=== PATIENT | female | born 1945 | race Hispanic/Latino ===

== ENCOUNTER 2017-12-30 10:31 | Observation (INO) | payer MEDICARE, OTHER ==
[2017-12-29 11:28] LABS: ANION GAP 13.4 mmol/L (8-16); CALCIUM 9.9 mg/dL (8.4-10.2); CREATININE, SERUM 1.02 mg/dL (0.57-1.11); POTASSIUM 4.4 mmol/L (3.5-5.1)
[~2017-12-30] VITALS: Ht 157.5 cm; Wt 82.6 kg
[~2017-12-30 10:31] MED LIST: ACTONEL150 MG PO; ALBUTEROL0.63 MG/3 NEB; ASPIR 8181 MG PO; ATORVASTATIN CA20 MG PO; BREO INH; GLIMEPIRIDE1 MG PO; JANUMET 50-5001 EACH PO; LEVOCETIRIZINE D5 MG PO; LISINOPRIL2.5 MG PO; OMEPRAZOLE40 MG PO; RESTASIS1 EACH OP; SYMBICORT 80-10.2 GM INH; ULTRAM 50MG50 MG PO; ZOFRAN ODT8 MG PO
--- OUTSIDE RECORDS SUMMARY | 2017-12-30 10:34 | XMS REPORT ---
Author Author [facility] Address Unknown Phone Unavailable Care Team Providers Care Material Man Name Role Phone GLENROY PARIKH Unavailable Unavailable Problems This patient has no known problems. Allergies, Adverse Reactions, Alerts This patient has no known allergies or adverse reactions. Medications This patient has no known medications. Results Test Description Test Time Test Comments Text Results Atomic Results Result Comments MRI RIGHT KNEE WO [place] [address] Patient Name: ANGELICA SAENZ MR #: [id number] : 1945 Age/Sex: 72/F Req # : [id number] [facility] Physician: Ordered by: GLENROY PARIKH MD Report #: [id number] Location: MRI Room/Bed: Procedure: [id number] MRI/MRI RIGHT KNEE WO Exam Date: 06/06/17 Exam Time: 1422 REPORT STATUS: Signed TECHNIQUE: Magnetic resonance imaging of the RIGHT KNEE was performed WITHOUT injected contrast. HISTORY: Pain, tear of medial meniscus COMPARISON: None available. FINDINGS: LIGAMENTS AND TENDONS: ACL: Intact fibers with intrasubstance degeneration. PCL: Intact Collateral ligaments: Intact Iliotibial band: Unremarkable Popliteal tendon: Intact Extensor mechanism: Intact JOINT: Menisci: Medial: Diffuse severe attenuation and mild contour irregularity. Lateral: Intact Articular Cartilage: Medial Compartment : Full-thickness erosion of the weightbearing cartilage. Lateral Compartment : Intermediate to high-grade erosion of the weightbearing cartilage. Patellofemoral Compartment: Diffuse low-grade erosion. Joint Fluid: Small effusion with synovitis and a nondistended Francis's cyst. BONES: No focal or infiltrative bone marrow replacing abnormality. No acute fracture. Medial compartment predominant marginal osteophytosis and subchondral sclerosis. SOFT TISSUES: Otherwise, unremarkable. IMPRESSION: Medial compartment predominant tricompartmental osteoarthrosis and degenerative tearing versus prior partial meniscectomy with superimposed degenerative changes of the medial meniscus. Please correlate with a more specific history regarding the potential history of a prior surgery. Signed by: Dr. Wili Sheets M.D. on 06/06/2017 3:10 PM Dictated By: WILI SHEETS DO 1510 Transcribed By: IRENE on 06/06/17 1510 COPY TO: GLENROY PARIKH MD
[2017-12-30] MEDS ORDERED: CEFAZOLIN SOD 2 GM/D5W 50ML 50 ML IV ONE (11:04)
[2017-12-30] MEDS ORDERED: BUPIVACAINE 0.5%/EPI 30 ML SDV INJ ONE (13:04)
[2017-12-30] MEDS ORDERED: DIPHENHYDRAMINE HCL INJ 50 MG/ML VIAL IM/IV PRN (15:15)
[2017-12-30] MEDS ORDERED: ACETAMINOPHEN 1000 MG/100 ML IV PRN (15:15)
[2017-12-30] MEDS ORDERED: NALOXONE HCL INJ 0.4 MG/ML AMP IV PRN (15:15)
[2017-12-30] MEDS ORDERED: HYDROMORPHONE 0.2MG/ML-SOD CHL 30ML PCA SYRINGE IV PRN (15:15)
[2017-12-30] MEDS ORDERED: ONDANSETRON HCL INJ 2 MG/ML VIAL IV PRN (15:15)
[2017-12-30] MEDS ORDERED: HYDROMORPHONE 0.2MG/ML-SOD CHL 30ML PCA SYRINGE IV ONE (17:08)
[2017-12-30] MEDS ORDERED: LIDOCAINE HCL 2% LOCAL INJ 5 ML SDV VIAL INJ ONE (17:26)
[2017-12-30] MEDS ORDERED: ONDANSETRON HCL INJ 2 MG/ML VIAL ONE (17:26)
[2017-12-30] MEDS ORDERED: EPHEDRINE SULFATE INJ 50 MG/10 ML SYR ONE (17:26)
[2017-12-30] MEDS ORDERED: ROCURONIUM BROMIDE 10 MG/ML 5ML VIAL ONE (17:26)
[2017-12-30] MEDS ORDERED: DEXAMETHASONE SOD PHOS INJ 4 MG/ML VIAL ONE (17:26)
[2017-12-30] MEDS ORDERED: PROPOFOL IV EMULSION 10 MG/ML 20 ML VIAL ONE (17:26)
[2017-12-30] MEDS ORDERED: NEOSTIGMINE 5 MG/5ML SYR ONE (17:26)
[2017-12-30] MEDS ORDERED: GLYCOPYRROLATE INJ 1MG/ 5 ML SYR ONE (17:26)
[2017-12-30] MEDS ORDERED: SEVOFLURANE INHAL SOLN 250 ML PEN BTL ONE (17:26)
[2017-12-30] MEDS ORDERED: BUPIVACAINE HCL 0.5% INJ 30 ML VIAL INJ ONE (17:30)
[2017-12-30] MEDS ORDERED: EPINEPHRINE HCL INJ 1 MG/ML AMP ONE (17:30)
[2017-12-30 17:38] VITALS: BP 116/59
[2017-12-30 17:53] VITALS: BP 116/59
[2017-12-30] MEDS: SODIUM CHLORIDE 0.9% 1000ML 1,000 ML IV SCH (18:00)
[2017-12-30 18:25] VITALS: BP 116/59
[2017-12-30] MEDS ORDERED: FENTANYL CITRATE/PF 100MCG/2 ML INJ ONE (18:29)
[2017-12-30] MEDS ORDERED: MIDAZOLAM HCL 2 MG/2 ML VIAL ONE (18:29)
[2017-12-30 20:00] VITALS: BP 116/59
[2017-12-30] MEDS: CEFAZOLIN SOD 1 GM VIAL IV SCH (20:28)
[2017-12-30] MEDS ORDERED: CEFAZOLIN SOD 1 GM/D5W 50ML 50 ML IV SCH (22:00)
[2017-12-31] VITALS: BP 106/58
[2017-12-31] MEDS: SODIUM CHLORIDE 0.9% 1000ML 1,000 ML IV SCH ×2 (01:12→09:23)
[2017-12-31 04:00] VITALS: BP 88/55
[2017-12-31] MEDS: CEFAZOLIN SOD 1 GM VIAL IV SCH ×2 (05:50→12:03)
[2017-12-31 06:35] LABS: HEMATOCRIT 29.7 % (34.2-44.1); HEMOGLOBIN 9.2 g/dL (12.0-16.0)
[2017-12-31 08:00] VITALS: BP 96/55
--- NOTE | 2017-12-31 08:39 | Operative Report ---
DATE OF PROCEDURE: December 30, 2017 PREOPERATIVE DIAGNOSIS: Right proximal humerus fracture. POSTOPERATIVE DIAGNOSIS: Right proximal humerus fracture. OPERATIONS/PROCEDURES PERFORMED 1. The patient underwent an open reduction internal fixation of right proximal humerus fracture. 2. Allograft bone grafting of the right proximal humerus fracture. PRIVATE BRANCH EXCHANGE INSTALLER: None. ANESTHESIA: General endotracheal intubation anesthesia, as well as a regional block. IV FLUIDS: Per the anesthesia record. ESTIMATED BLOOD LOSS: Approximately 200 mL. BRIEF DESCRIPTION OF THE PATIENT'S OPERATIVE PROCEDURE: Ms. Sheldon was taken to the operating room and placed in the supine position on the operating table. Following induction of general anesthesia, as well as endotracheal intubation, the patient's right upper extremity was examined under anesthesia. She was found to have swelling about the right shoulder joint. There was limited motion of the shoulder. Fluoroscopic evaluation of the shoulder joint demonstrated a right proximal humerus fracture with the shaft positioned anterior to the head and significantly traversing the head. There was callous formation and easily visible on the C-arm pictures. The patient's shoulder and upper extremity were prepped and draped in a standard surgical fashion. Standard deltopectoral approach was undertaken. An incision was created beginning roughly at the level of the clavicle traversed overlying the coracoid along the deltopectoral interval to the lateral aspect of the upper arm. This incision was carried through skin only. Blunt dissection was used to deepen the incision and the cephalic vein was identified. It was mobilized medially. The deltopectoral interval was further explored. The pectoralis muscle was identified and freed from its insertion into the humerus. The biceps tendon was then identified and found to be torn as it exited the glenohumeral joint. The soft tissues were mobilized around the proximal humerus. Scar tissue and callous formation was taken down. The fracture site was identified and the shaft was carefully freed from the head. Examination of the tuberosities demonstrated that they were firmly attached to the head. The head was repositioned in a more anatomic position. A plate was chosen and affixed to the proximal humerus. Position of the plate was then checked using fluoroscopy and found to be appropriate. The head was then captured with multiple locking screws. The shaft portion of the plate was then affixed to the shaft with locking screws. The position of the plate, as well as reduction of the fracture was then assessed using fluoroscopy. The patient's arm was placed through a range of motion, and the head was found to move with the shaft. The wound was copiously irrigated. The patient's fracture site was copiously grafted with allograft bone graft and Renzo putty. The deltopectoral groove was then reapproximated. The remaining soft tissues were closed in a multilayer fashion. Sterile dressings were applied. The patient was provided a shoulder immobilizer, awakened and taken to the postanesthesia care unit in stable condition. Job#: [id number] EBONIE
[2017-12-31] MEDS ORDERED: ALBUTEROL SULF 0.083% NEB SOLN 3 ML NEB NEB SCH (09:15)
[2017-12-31] MEDS ORDERED: TRAMADOL HCL 50 MG TAB PO SCH (09:15)
[2017-12-31 09:21] LABS: ANION GAP 12.2 mmol/L (8-16); CALCIUM 8.5 mg/dL (8.4-10.2); CREATININE, SERUM 0.98 mg/dL (0.57-1.11); POTASSIUM 4.2 mmol/L (3.5-5.1)
[2017-12-31] MEDS ORDERED: TRAMADOL HCL 50 MG TAB PO PRN (09:30)
[2017-12-31] MEDS ORDERED: ALBUTEROL SULF 0.083% NEB SOLN 3 ML NEB NEB PRN (09:30)
[2017-12-31] MEDS ORDERED: DEXTROSE 50% SYRINGE 50 ML IV PRN (09:30)
--- NOTE | 2017-12-31 09:48 | Consultation ---
DATE OF CONSULTATION: December 31, 2017 REASON FOR CONSULTATION: Medical management. HISTORY OF PRESENT ILLNESS: This is a 72-year-old woman who suffered a right proximal humerus fracture secondary to mechanical fall recently. On December 30, 2017, the patient underwent successful open reduction internal fixation of right proximal humerus fracture, which was performed by her orthopedic surgeon, namely Dr. Palomo Sykes. The patient states that her pain is somewhat controlled. The patient states her pain is 7/10, but she is somewhat reticent to pushing the hydromorphone ELECTRIC ARC FURNACE OPERATOR button because of her hypotension. The patient denies any lightheadedness or dizziness. She also denies any chest pain, shortness of breath or cough. Blood work done today revealed a hemoglobin of 9.2 g/dL. On December 29, 2017, the patient was found to have a BUN and creatinine of 18 and 1.02 with a potassium of 4.4. REVIEW OF SYSTEMS GENERAL: Weight has been stable. No fever or chills. HEENT: No headaches. No visual changes. CARDIOVASCULAR: No chest pain or cough. GI: No nausea or constipation. : No dysuria, hematuria or constipation. Has no Doherty catheter in place. NEUROMUSCULAR: The patient states that her right upper arm is somewhat painful of 7/10. PAST SURGICAL HISTORY 1. Total abdominal hysterectomy with bilateral salpingo-oophorectomy. 2. Right knee meniscal repair. 3. Right proximal humerus open reduction internal fixation on December 30, 2017. 4. Left heart catheterization (no stent placed). PAST MEDICAL HISTORY 1. Type 2 diabetes mellitus. 2. Hyperlipidemia. 3. Obesity. 4. Sinus allergies. 5. Osteoporosis. 6. Chronic bronchitis. FAMILY HISTORY: Noncontributory. SOCIAL HISTORY: This woman is single. She lives alone in a single story home. No history of tobacco or alcohol use. She has a very supportive family. In fact, she has an adult daughter at the bedside. ALLERGIES: NO KNOWN DRUG ALLERGIES. MEDICATIONS 1. Albuterol nebulized treatments up to 4 times a day as needed for shortness of breath or wheezing. 2. Aspirin 81 mg daily. 3. Atorvastatin 20 mg at bedtime. 4. Symbicort 80 per 4.5 mg 1 puff b.i.d. 5. Cyclosporin eye drops 1 drop in each eye daily. 6. Xyzal 5 mg daily. 7. Lisinopril 2.5 mg daily. 8. Omeprazole 40 mg daily. 9. Ondansetron 8 mg p.o. daily p.r.n. nausea and vomiting. 10. Actonel 150 mg once a month. 11. Sitagliptin with metformin 5 per 500 mg 1 b.i.d. 12. Tramadol 50 mg 1 b.i.d. p.r.n. pain. 13. Breo inhaler 1 puff daily. PHYSICAL EXAMINATION GENERAL: She is awake, alert and pleasant and cooperative with exam. Her adult daughter is at bedside. VITALS: Height is 5 feet 2 inches and weight is 182 pounds. Calculated body mass index is 33. Blood pressure is 96/55, pulse 90, respiratory rate 18, temperature 98.2. INTEGUMENT: Skin is warm and dry. No pallor, conjunctivitis or diaphoresis. HEENT: Anicteric sclerae. Moist mucous membranes. NECK: Supple. CARDIOVASCULAR: Distant heart sounds. Regular rate and rhythm. LUNGS: Faintly coarse breath sounds bilaterally. ABDOMEN: Obese and benign. EXTREMITIES: No edema or deformity. The patient has sequential compression devices in place on her bilateral lower legs. The patient's right upper arm is in an immobilizer brace. NEUROLOGIC: Intact. No gross focal deficits appreciated. DIAGNOSES 1. Status post right proximal humerus open reduction internal fixation. 2. Postoperative anemia. 3. Type 2 diabetes mellitus. 4. Obesity (calculated body mass index 33). PLAN 1. Encourage incentive spirometer use to prevent atelectasis. 2. Blood glucose monitoring and control. 3. Will monitor the patient's blood pressure. 4. Will proceed with physical therapy. 5. Judicious pain control. 6. Renew home medications. 7. Will hold lisinopril because of the patient's hypotension. I would like to thank Dr. Sykes for this generous consult. I spent 45 minutes in the care of this patient. Job#: [id number] EBONIE MORAES
[2017-12-31] MEDS ORDERED: INSULIN REGULAR, HUMAN 100 UNIT/1 ML 3ML VIAL SQ SCH (11:30)
[2017-12-31 12:00] VITALS: BP 101/52
[2017-12-31] MEDS ORDERED: METFORMIN HCL 500 MG TAB PO SCH (17:00)
[2017-12-31] MEDS ORDERED: BUDESONIDE/FORMOTEROL FUMARATE 80/4.5MCG 6.9 GM INH AEROSOL IH SCH (17:00)
[2017-12-31] MEDS ORDERED: SITAGLIPTIN 100 MG TAB PO SCH (17:00)
[2017-12-31] MEDS ORDERED: ATORVASTATIN 20 MG TAB PO SCH (21:00)
[2018-01-01] MEDS ORDERED: PANTOPRAZOLE SOD 40 MG TABEC PO SCH (09:00)
[2018-01-01] MEDS ORDERED: ASPIRIN 81 MG CHEW TAB PO SCH (09:00)
[2018-06-02] MEDS ORDERED: METOPROLOL SUCC25 MG PO (09:14)
[2018-06-02] MEDS ORDERED: AMIODARONE HCL200 MG PO (09:15)
[2018-06-02] MEDS ORDERED: GABAPENTIN PO (09:16)
[2018-06-29] MEDS ORDERED: ASPIR 8181 MG PO (12:33)
[2018-06-29] MEDS ORDERED: ACTONEL150 MG PO (12:33)
[2018-06-29] MEDS ORDERED: ATORVASTATIN CA20 MG PO (12:33)
== END 2017-12-31 15:30 | disposition home or self-care (01) ==
LOC: OR 10:31 → IMCU 16:44
PROVIDERS: ADMIT Specialist; ATTEND Specialist
DX: S42.301A Unspecified fracture of shaft of humerus, right arm, initial encounter for closed fracture (principal); D64.9 Anemia, unspecified; E11.9 Type 2 diabetes mellitus without complications; E66.9 Obesity, unspecified; Z68.33 Body mass index [BMI] 33.0-33.9, adult
CPT/HCPCS: 24515; 24999; 36415 ×3; 76001; 80048 ×2; 82948 ×2; 85014; 85018; 93005; 97116; 97139; 97161; 97530; C1713 ×7; C1762; G0378 ×2; J0171; J0690 ×2; J1100; J2001; J2250; J2405; J7030 ×2

== ENCOUNTER 2018-02-25 14:18 | Outpatient (RCR) | payer MEDICARE | END 2018-02-26 | LOC: PT 14:18 | PROVIDERS: ATTEND Specialist | DX: S42.201A Unspecified fracture of upper end of right humerus, initial encounter for closed fracture (principal); M25.511 Pain in right shoulder; M25.611 Stiffness of right shoulder, not elsewhere classified; M62.81 Muscle weakness (generalized) | CPT/HCPCS: 97162; G8984; G8985 ==

== ENCOUNTER 2018-03-24 09:49 | Outpatient (RCR) | payer MEDICARE | END 2018-03-28 | LOC: PT 09:49 | PROVIDERS: ATTEND Specialist | DX: S42.291A Other displaced fracture of upper end of right humerus, initial encounter for closed fracture (principal); M25.511 Pain in right shoulder; M25.611 Stiffness of right shoulder, not elsewhere classified; M62.81 Muscle weakness (generalized) | CPT/HCPCS: 97139 ==

== ENCOUNTER → 2018-04-28 | Outpatient (RCR) | payer MEDICARE | LOC: PT 03-31 09:57 | PROVIDERS: ATTEND Specialist | DX: S42.291A Other displaced fracture of upper end of right humerus, initial encounter for closed fracture (principal); M25.511 Pain in right shoulder; M25.611 Stiffness of right shoulder, not elsewhere classified; M62.81 Muscle weakness (generalized) | CPT/HCPCS: 97010 ×8; 97110 ×12; 97139; 97140 ×3; G8984 ×2; G8985 ×2 ==

== ENCOUNTER 2018-05-26 10:59 | Outpatient (RCR) | payer MEDICARE ==
[2018-05-27] MEDS ORDERED: ONDANSETRON HCL INJ 2 MG/ML VIAL ONE (12:00)
[2018-06-02] MEDS ORDERED: METOPROLOL SUCC25 MG PO (09:14)
[2018-06-02] MEDS ORDERED: AMIODARONE HCL200 MG PO (09:15)
[2018-06-02] MEDS ORDERED: GABAPENTIN PO (09:16)
== END 2018-05-29 ==
LOC: PT 10:59
PROVIDERS: ATTEND Specialist
DX: S42.291A Other displaced fracture of upper end of right humerus, initial encounter for closed fracture (principal); M25.511 Pain in right shoulder; M25.611 Stiffness of right shoulder, not elsewhere classified; M62.81 Muscle weakness (generalized)
CPT/HCPCS: 97010 ×2; 97110 ×7; 97140; G8984; G8985; J2405

== ENCOUNTER 2018-06-25 13:00 | Outpatient (RCR) | payer MEDICARE, OTHER ==
[~2018-06-25 13:00] MED LIST changes: +AMIODARONE HCL200 MG PO; +GABAPENTIN PO; +METOPROLOL SUCC25 MG PO
[2018-06-29] MEDS ORDERED: ATORVASTATIN CA20 MG PO (12:33)
[2018-06-29] MEDS ORDERED: ACTONEL150 MG PO (12:33)
[2018-06-29] MEDS ORDERED: ASPIR 8181 MG PO (12:33)
== END 2018-06-28 ==
LOC: PT 13:00
PROVIDERS: ATTEND Specialist
DX: S42.291A Other displaced fracture of upper end of right humerus, initial encounter for closed fracture (principal); M25.511 Pain in right shoulder; M25.611 Stiffness of right shoulder, not elsewhere classified; M62.81 Muscle weakness (generalized)

== ENCOUNTER 2018-06-29 12:53 | Outpatient (RCR) | payer MEDICARE, OTHER ==
[2018-07-01] MEDS ORDERED: BUPIVACAINE HCL 0.5% INJ 30 ML VIAL INJ ONE (06:34)
== END 2018-07-29 ==
LOC: PT 12:53
PROVIDERS: ATTEND Specialist
DX: S42.201A Unspecified fracture of upper end of right humerus, initial encounter for closed fracture (principal); M25.511 Pain in right shoulder; M25.611 Stiffness of right shoulder, not elsewhere classified; M62.81 Muscle weakness (generalized)
CPT/HCPCS: 97110; G8984; G8985

== ENCOUNTER → 2018-07-01 | Day surgery (SDC) | payer MEDICARE, OTHER ==
[2018-06-29 12:31] LABS: BASOPHILS # (AUTO) 0.1 (0.0-0.1); BASOPHILS % 0.7 % (0.0-1.0); EOSINOPHILS # (AUTO) 0.3 (0.0-0.4); EOSINOPHILS % 3.1 % (0.0-6.0); HEMOGLOBIN 12.1 g/dL (12.0-16.0); LYMPHOCYTES # (AUTO) 1.6 (1.0-3.2); LYMPHOCYTES % 20.2 % (18.0-39.1); MEAN CORPUSCULAR HEMOGLOBIN 25.6 pg (28-32); MEAN CORPUSCULAR HGB CONC 30.3 g/dL (31-35); MEAN CORPUSCULAR VOLUME 84.6 fL (81-99); MONOCYTES # (AUTO) 0.6 (0.2-0.8); MONOCYTES % 7.6 % (4.4-11.3); NEUTROPHILS # (AUTO) 5.5 (2.1-6.9); PLATELET COUNT 300 x10e3/uL (140-360); RED BLOOD COUNT 4.73 x10e6/uL (3.6-5.1); RED CELL DISTRIBUTION WIDTH 15.8 % (11.7-14.4)
[2018-06-29 12:55] LABS: ANION GAP 17.1 mmol/L (8-16); CALCIUM 9.6 mg/dL (8.4-10.2); CREATININE, SERUM 1.39 mg/dL (0.57-1.11); POTASSIUM 5.1 mmol/L (3.5-5.1)
[~2018-07-01] MED LIST changes: +CEFAZOLIN SOD 2 GM/D5W 50ML 50 ML IV ONE; +DEXAMETHASONE SOD PHOS INJ 4 MG/ML VIAL ONE; +FENTANYL CITRATE/PF 100MCG/2 ML INJ ONE; +LIDOCAINE HCL 2% LOCAL INJ 5 ML SDV VIAL INJ ONE; +ONDANSETRON HCL INJ 2 MG/ML VIAL ONE; +PROPOFOL IV EMULSION 10 MG/ML 20 ML VIAL ONE; +SEVOFLURANE INHAL SOLN 250 ML PEN BTL ONE
[2018-07-01 09:20] VITALS: BP 120/62
--- NOTE | 2018-07-02 19:06 | Operative Report ---
DATE OF PROCEDURE: July 01, 2018 PREOPERATIVE DIAGNOSIS: Right carpal tunnel syndrome. POSTOPERATIVE DIAGNOSIS: Right carpal tunnel syndrome. OPERATIONS/PROCEDURE PERFORMED: Patient underwent right carpal tunnel release. WELT ROUGHER: Marquita Valdivia. ANESTHESIA: General endotracheal intubation anesthesia. IV FLUIDS: Per the anesthesia record. BRIEF DESCRIPTION OF THE PATIENT'S OPERATIVE PROCEDURE: Ms. Sheldon was taken to the operating room and placed in supine position on operating table. Following induction of general anesthesia as well as endotracheal intubation, patient's right upper extremity was examined under anesthesia. She was found to have a normal appearing hand. There were no gross abnormalities. The patient's upper extremity was prepped and draped in standard surgical fashion. An incision was created along the thenar palmar crease. This incision was carried through skin only. Blunt dissection was used deep incision to the level of the transverse carpal ligament. The distal edge of the transverse carpal ligament was identified and hemostat was placed beneath the ligament. The ligament was then divided in line with the skin incision. The floor of carpal canal was evaluated and no abnormalities were found. The median nerve was also found to have no gross abnormalities. The tourniquet was deflated. Hemostasis was obtained. The wound was closed in a single layer fashion. Sterile dressings were applied. The patient was awakened and taken to the postanesthesia care unit in stable condition. Marquita Valdivia enacted as ophthalmic assistant for this case was necessary for both retraction of soft tissues to allow a proper visualization of the surgical site as well as closure of the wound that allow this case to be successful. Job#: [id number] VAS
== END | disposition home or self-care (01) ==
LOC: OR 05:32
PROVIDERS: ATTEND Specialist
DX: G56.01 Carpal tunnel syndrome, right upper limb (principal); J00 Acute nasopharyngitis [common cold]; I25.10 Atherosclerotic heart disease of native coronary artery without angina pectoris; K21.9 Gastro-esophageal reflux disease without esophagitis; E78.00 Pure hypercholesterolemia, unspecified; E11.22 Type 2 diabetes mellitus with diabetic chronic kidney disease; I12.9 Hypertensive chronic kidney disease with stage 1 through stage 4 chronic kidney disease, or unspecified chronic kidney disease; N18.9 Chronic kidney disease, unspecified; Z01.812 Encounter for preprocedural laboratory examination; Z79.82 Long term (current) use of aspirin; Z96.651 Presence of right artificial knee joint
CPT/HCPCS: 36415 ×2; 64721; 80048; 82948; 85025; J1100; J2001; J2405; J0690

== ENCOUNTER → 2018-11-09 | Outpatient (CLI) | payer MEDICARE, OTHER ==
[~2018-11-09] MED LIST changes: -CEFAZOLIN SOD 2 GM/D5W 50ML 50 ML IV ONE; -DEXAMETHASONE SOD PHOS INJ 4 MG/ML VIAL ONE; -FENTANYL CITRATE/PF 100MCG/2 ML INJ ONE; -LIDOCAINE HCL 2% LOCAL INJ 5 ML SDV VIAL INJ ONE; -ONDANSETRON HCL INJ 2 MG/ML VIAL ONE; -PROPOFOL IV EMULSION 10 MG/ML 20 ML VIAL ONE; -SEVOFLURANE INHAL SOLN 250 ML PEN BTL ONE
--- NOTE | 2018-11-09 11:32 | Diagnostic Imaging Report ---
Left knee MRI without contrast. History: Knee pain. Lateral meniscus tear. Pain not responding to conservative management. Pain with walking. Comparison: None Technique: Multiplanar multi-sequence MRI of the knee without contrast. Findings: Medial compartment: Complex tear involving the posterior horn and body segments of the medial meniscus. Articular cartilage fraying and deep fissuring in the medial compartment with mild underlying bone marrow edema at the posterior medial femoral condyle. Small peripheral marginal osteophytes. The medial collateral complex is intact. Lateral compartment: Degeneration and fraying of the lateral meniscus without tear. Articular cartilage fraying and fissuring in the lateral compartment with subchondral microtrabecular fracture at the anterior lateral femoral condyle with associated bone marrow edema best seen on sagittal image 11. No cortical fracture is seen. The lateral collateral ligament complex is intact. Intercondylar notch: The ACL and PCL are intact. Small calcified loose body posterior to the posterior cruciate ligament best seen on sagittal image 18. Patellofemoral compartment: Articular cartilage fraying and deep fissuring in the patellofemoral compartment with mild underlying bone marrow edema. Extensor mechanism: The quadriceps and patellar tendons are normal. Other findings: There is a joint effusion and synovitis. There is no acute fracture, subluxation or avascular necrosis. IMPRESSION: Complex tear involving the posterior horn and body segments of the medial meniscus. Articular cartilage fraying and deep fissuring in the medial compartment with mild underlying bone marrow edema at the posterior medial femoral condyle. Articular cartilage fraying and fissuring in the lateral compartment with subchondral microtrabecular fracture at the anterior lateral femoral condyle with associated bone marrow edema. Joint effusion, synovitis and small loose body posterior to the posterior cruciate ligament. Signed by: Dr. Josh Pena M.D. on 11/09/2018 11:28 AM
== END ==
LOC: MRI 09:55
PROVIDERS: ATTEND Specialist
DX: S83.262A Peripheral tear of lateral meniscus, current injury, left knee, initial encounter (principal)

== ENCOUNTER 2019-03-07 13:22 | Inpatient (IN) | payer MEDICARE ==
[~2019-03-07] VITALS: Ht 154.9 cm; Wt 79.8 kg
--- OUTSIDE RECORDS SUMMARY | 2019-03-07 13:25 | XMS REPORT | Continuity of Care Document ---
Author Author [facility] Interface Address Unknown Phone Unavailable Problems Problem Status Onset Date Classification Date Reported Comments Source Medications Medication Details Route Status Patient Instructions Ordering Provider Order Date Source Albuterol Sulfate 0.63 Mg/3 Ml Vial.neb, Nebullizer As Needed Active 06/02/2018 [facility] Aspirin (Aspir 81) 81 Mg Tablet.dr, 81 Mg Oral Daily Active 06/02/2018 [facility] Atorvastatin Calcium 20 Mg Tablet, 20 Mg Oral Bedtime Active 06/02/2018 [facility] Breo , Inhalation As Needed Active 06/02/2018 [facility] Budesonide/Formoterol Fumarate (Symbicort 80-4.5 Mcg Inhaler) 10.2 Gm Hfa.aer.ad, 1 Each Inhalation As Needed Active 06/02/2018 [facility] Cyclosporine (Restasis) 1 Each Droperette, Ophthalmic As Needed Active 06/02/2018 [facility] Levocetirizine Dihydrochloride 5 Mg Tablet, 5 Mg Oral As Needed Active 06/02/2018 [facility] Lisinopril 2.5 Mg Tablet, 5 Mg Oral Daily Active 06/02/2018 [facility] Ondansetron (Zofran Odt) 8 Mg Tab.rapdis, 8 Mg Oral As Needed Active 06/02/2018 [facility] Risedronate Sodium (Actonel) 150 Mg Tablet, 150 Mg Oral Mthly Active 06/02/2018 [facility] Tramadol Hcl (Ultram 50MG*) 50 Mg Tab, 50 Mg Oral As Needed Active 06/02/2018 [facility] Glimepiride 1 Mg Tablet, 1 Mg Oral Daily Active 12/29/2017 [facility] Amiodarone Hcl 200 Mg Tablet Twice A Day Active [facility] Gabapentin Bedtime Active [facility] Metoprolol Succinate 25 Mg Tab.er.24h Twice A Day [facility] Omeprazole 40 Mg Capsule.dr Daily Active [facility] Sitagliptin Phos/Metformin Hcl (Janumet 50-500 Mg Tablet) 1 Each Tablet Twice A Day [facility] Allergies, Adverse Reactions, Alerts Substance Category Reaction Severity Reaction type Status Date Reported Comments Source Immunizations Immunization Date Given Site Status Last Updated Comments Source Results Order Name Results Value Reference Range Date Interpretation Comments Source Automated blood basophil count (count/volume) Automated blood basophil count (count/volume) 0.1 0.0 - 0.1 06/02/2018 [facility] Automated blood basophil count as percentage of total leukocytes Automated blood basophil count as percentage of total leukocytes 0.7 0.0 - 1.0 06/02/2018 [facility] Automated blood eosinophil count Automated blood eosinophil count 0.3 0.0 - 0.4 06/02/2018 [facility] Automated blood eosinophil count as percentage of total leukocytes Automated blood eosinophil count as percentage of total leukocytes 3.9 0.0 - 6.0 06/02/2018 [facility] Automated blood hematocrit (volume fraction) Automated blood hematocrit (volume fraction) 37.2 34.2 - 44.1 06/02/2018 [facility] Automated blood lymphocyte count as percentage ot total leukocytes Automated blood lymphocyte count as percentage ot total leukocytes 21.4 18.0 - 39.1 06/02/2018 [facility] Automated blood monocyte count as percentage of total leukocytes Automated blood monocyte count as percentage of total leukocytes 7.9 4.4 - 11.3 06/02/2018 [facility] Automated blood neutrophil count Automated blood neutrophil count 4.7 2.1 - 6.9 06/02/2018 [facility] Automated blood platelet count (count/volume) Automated blood platelet count (count/volume) 295 140 - 360 06/02/2018 [facility] Automated blood segmented neutrophil count as percentage of total leukocytes Automated blood segmented neutrophil count as percentage of total leukocytes 65.8 38.7 - 80.0 06/02/2018 [facility] Automated erythrocyte mean corpuscular hemoglobin (mass per erythrocyte) Automated erythrocyte mean corpuscular hemoglobin (mass per erythrocyte) 25.5 28 - 32 06/02/2018 [facility] Automated erythrocyte mean corpuscular hemoglobin concentration measurement (mass/volume) Automated erythrocyte mean corpuscular hemoglobin concentration measurement (mass/volume) 29.8 31 - 35 06/02/2018 [facility] Automated erythrocyte mean corpuscular volume Automated erythrocyte mean corpuscular volume 85.3 81 - 99 06/02/2018 [facility] Blood erythrocytes automated count (number/volume) Blood erythrocytes automated count (number/volume) 4.36 3.6 - 5.1 06/02/2018 [facility] Blood hemoglobin measurement (moles/volume) Blood hemoglobin measurement (moles/volume) 11.1 12.0 - 16.0 06/02/2018 [facility] Blood leukocytes automated count (number/volume) Blood leukocytes automated count (number/volume) 7.10 4.8 - 10.8 06/02/2018 [facility] Blood lymphocytes count (number/volume) Blood lymphocytes count (number/volume) 1.5 1.0 - 3.2 06/02/2018 [facility] Blood monocytes automated count (number/volume) Blood monocytes automated count (number/volume) 0.6 0.2 - 0.8 06/02/2018 [facility] Estimated glomerular filtration rate (GFR) determination Estimated glomerular filtration rate (GFR) determination 43 60 06/02/2018 [facility] Glucose measurement Glucose measurement 93 74 - 118 06/02/2018 [facility] Serum or plasma anion gap Serum or plasma anion gap 15.4 8 - 16 06/02/2018 [facility] Serum or plasma calcium measurement (mass/volume) Serum or plasma calcium measurement (mass/volume) 10.1 8.4 - 10.2 06/02/2018 [facility] Serum or plasma carbon dioxide, total measurement (moles/volume) Serum or plasma carbon dioxide, total measurement (moles/volume) 30 22 - 29 06/02/2018 [facility] Serum or plasma chloride measurement (moles/volume) Serum or plasma chloride measurement (moles/volume) 101 98 - 107 06/02/2018 [facility] Serum or plasma creatinine measurement (mass/volume) Serum or plasma creatinine measurement (mass/volume) 1.22 0.57 - 1.11 06/02/2018 [facility] Serum or plasma potassium measurement (moles/volume) Serum or plasma potassium measurement (moles/volume) 5.4 3.5 - 5.1 06/02/2018 [facility] Serum or plasma sodium measurement (moles/volume) Serum or plasma sodium measurement (moles/volume) 141 136 - 145 06/02/2018 [facility] Serum or plasma urea nitrogen measurement (mass/volume) Serum or plasma urea nitrogen measurement (mass/volume) 20 7 - 26 06/02/2018 [facility] Serum or plasma urea nitrogen/creatinine mass ratio Serum or plasma urea nitrogen/creatinine mass ratio 16 6 - 25 06/02/2018 [facility] Red Cell Distribution Width 16.2 11.7 - 14.4 06/02/2018 [facility] IM GRANULOCYTES % 0.3 0.0 - 1.0 06/02/2018 [facility] Absolute Immature Granulocyte (auto 0.02 0 - 0.1 06/02/2018 [facility] Capillary blood glucose measurement by glucometer (mass/volume) Capillary blood glucose measurement by glucometer (mass/volume) 125 70 - 120 12/30/2017 [facility] Vital Signs Vital Sign Value Date Comments Source Encounters Location Location Details Encounter Type Encounter Number Reason For Visit Attending Provider ADM Date DC Date Status Source Discharged Inpatient (obs) [id number] GLENROY PARIKH MD 12/30/2017 12/31/[facility] Discharged Recurring [id number] GLENROY PARIKH MD 02/25/2018 02/26/2018 [facility] Discharged Recurring [id number] GLENROY PARIKH MD 02/27/2018 03/28/2018 [facility] Discharged Recurring [id number] GLENROY PARIKH MD 03/31/2018 04/28/2018 [facility] Discharged Recurring [id number] GLENROY PARIKH MD 04/29/2018 05/29/2018 [facility] Registered [facility] [id number] GLENROY PARIKH MD 06/03/2018 [facility] Discharged Recurring [id number] GLENROY PARIKH MD 06/25/2018 06/28/2018 [facility] Procedures Procedure Code Date Perfomer Comments Source X-ray of chest, two views [id number] 06/02/2018 [facility] TREAT HUMERUS FRACTURE [id number] 12/30/2017 [facility] UPPER ARM/ELBOW SURGERY [id number] 12/30/2017 [facility]
[2019-03-07] MEDS ORDERED: MORPHINE SULFATE INJ 4 MG/ML INJ 1ML IV NR (14:00)
[2019-03-07 14:13] LABS: BASOPHILS # (AUTO) 0.1 (0.0-0.1); BASOPHILS % 0.7 % (0.0-1.0); EOSINOPHILS # (AUTO) 0.2 (0.0-0.4); EOSINOPHILS % 2.1 % (0.0-6.0); HEMOGLOBIN 11.6 g/dL (12.0-16.0); LYMPHOCYTES # (AUTO) 1.2 (1.0-3.2); LYMPHOCYTES % 13.3 % (18.0-39.1); MEAN CORPUSCULAR HGB CONC 31.4 g/dL (31-35); MONOCYTES # (AUTO) 0.5 (0.2-0.8); MONOCYTES % 5.5 % (4.4-11.3); NEUTROPHILS # (AUTO) 6.8 (2.1-6.9); NEUTROPHILS % 76.7 % (38.7-80.0); PLATELET COUNT 284 x10e3/uL (140-360); RED CELL DISTRIBUTION WIDTH 13.8 % (11.7-14.4)
[2019-03-07 14:19] LABS: INR 0.98; PARTIAL THROMBOPLASTIN TIME 27.5 seconds (23.8-35.5); PROTHROMBIN TIME 13.5 seconds (11.9-14.5)
[2019-03-07 14:29] LABS: ALBUMIN 3.8 g/dL (3.5-5.0); ALBUMIN/GLOBULIN RATIO 1.1 (0.8-2.0); ANION GAP 13.2 mmol/L (8-16); CALCIUM 9.3 mg/dL (8.4-10.2); CREATININE, SERUM 1.09 mg/dL (0.57-1.11); POTASSIUM 4.2 mmol/L (3.5-5.1)
--- NOTE | 2019-03-07 14:59 | Diagnostic Imaging Report ---
History:Fall Comparison studies: None Technique: Axial images were obtained from the skull base to the vertex. Coronal and sagittal images reconstructed from the axial data. Dose modulation, iterative reconstruction, and/or weight based adjustment of the mA/kV was utilized to reduce the radiation dose to as low as reasonably achievable. Intravenous contrast: None Findings: Scalp/skull: No abnormalities. Extra-axial spaces: No masses. No fluid collections. Brain sulci: Mildly prominent. Ventricles: Mild compensatory dilatation. No hydrocephalus. Parenchyma: Subtle hypodensities in the supratentorial white matter are small vessel ischemic changes. An old cavitated lacunar insult is centered in the anterior limb of the left internal capsule. No masses, hemorrhage, acute or chronic cortical vascular insults. Sellar/suprasellar region: No abnormalities. Craniocervical junction: Patent foramen magnum. No Chiari one malformation. Incidental findings: Atherosclerotic calcifications in the carotid siphons . Impression: No acute abnormalities. Chronic findings: 1. Mild supratentorial white matter small vessel ischemic changes. 2. Focal lacunar insult in the anterior limb of the left internal capsule. Signed by: Dr. Ace Gregory M.D. on 03/07/2019 2:55 PM
--- NOTE | 2019-03-07 15:09 | Diagnostic Imaging Report ---
RIGHT HIP - 3 Images HISTORY: Fall, pain, rule out fracture COMPARISON: None available. FINDINGS: Bones: Some of the osseous structures are partially obscured by stool and overlying bowel gas. No acute displaced fracture. No aggressive osseous lesion. Joints: Severe degenerative changes of the pubic symphysis. Soft tissues: The soft tissues appear unremarkable. IMPRESSION: 1. No acute radiographic abnormality. 2. If signs and symptoms persist or worsen, recommend a follow-up MRI of the pelvis without contrast to provide a more sensitive evaluation of an insufficiency fracture.. Signed by: Dr. Wili Sheets D.O., M.M.M. on 03/07/2019 3:06 PM
--- NOTE | 2019-03-07 15:12 | Diagnostic Imaging Report ---
History: Fall Comparison studies: None Technique: Axial images were obtained through the cervical region.. Coronal and sagittal images reconstructed from the axial data. Dose modulation, iterative reconstruction, and/or weight based adjustment of the mA/kV was utilized to reduce the radiation dose to as low as reasonably achievable. Intravenous contrast: None Findings: Fractures: None. Soft tissues: A relatively well-circumscribed 2.8 x 1.9 x 1.9 cm (SI-AP-Trans) noncalcified,, nonnecrotic mildly hyperdense mass posterior but separate from the right lobe of the thyroid is not associated with inflammatory changes in the surrounding soft tissues. It abuts the trachea but not the esophagus. (Series 6, image 51, series 801 image 17 and series 800, image 23). A similar second mass, associated with punctate calcifications is in the thoracic inlet at the midline partially posterior to the sternum (series 6, image 58, series 801, image 11). Atlantoaxial articulation: Intact. Alignment: Normal lordosis. No scoliosis. Cervicomedullary junction: No abnormalities. The foramen magnum is patent. Vertebrae: Bones mildly demineralized but no compression fractures. No infection or neoplasm. Degenerative changes: Moderately degenerated disks at C4-5 and C5-6. Moderate bilateral foraminal stenosis at C4-5 and on the left at C5-6 due to uncovertebral arthrosis. Mild spinal canal stenosis at both levels due to disc osteophyte complexes. Incidental focal calcifications in the aortic arch IMPRESSION: 1. No acute cervical spine abnormalities. 2. Cannot adequately evaluate for ligament, spinal cord and or vascular abnormalities. 3. Degenerative spinal canal and foraminal stenosis as described. 4. Recommend an outpatient neck CT with contrast to adequately evaluate incidental well-circumscribed masses posterior to the right lobe of the thyroid and lateral to the trachea and esophagus (Series 6, image 51, series 801 image 17 and series 800, image 23) and a second mass in the thoracic inlet at the midline inferior to the thyroid. (series 6, image 58, series 801, image 11). Cannot further evaluate on this exam. Signed by: Dr. Ace Gregory M.D. on 03/07/2019 3:09 PM
--- NOTE | 2019-03-07 15:12 | Diagnostic Imaging Report ---
A single frontal view of the chest. HISTORY: Fall COMPARISON: Chest radiograph June 02, 2018 DISCUSSION: Portable technique, limits sensitivity of the exam. Overlying monitoring leads and unchanged electronic device. Soft tissue attenuation further limits sensitivity of the exam. Tubes/Lines: None Lungs and pleura: The lungs are well inflated. No evidence of a consolidative pneumonia or pulmonary alveolar edema. No definite pleural effusion or pneumothorax is identified. Heart and mediastinum: The cardiomediastinal silhouette appears unremarkable. Bones and soft tissues: Partially visualized metallic hardware at the right proximal humerus. IMPRESSION: No acute radiographic abnormality. Signed by: Dr. Wili Sheets D.O., M.M.M. on 03/07/2019 3:09 PM
--- NOTE | 2019-03-07 15:18 | NUR ---
PT REPORTS IMPROVEMENT IN PAIN, INFORMED OF PENDING IMAGING RESULTS. PT RESTING COMFORTABLY IN SEMI-FOWLERS IN BED WITH FAMILY AT BEDSIDE, NAD NOTED. FAMILY AT BEDSIDE.
--- NOTE | 2019-03-07 16:28 | NUR ---
PT EATING [place] WITH FAMILY AT THIS TIME, STATES THAT SHE WILL PRESS CALL LIGHT WHEN DONE EATING FOR ROAD TEST. NAD NOTED, BREATHING EVEN/UNLABORED.
--- NOTE | 2019-03-07 16:50 | NUR ---
ATTEMPTED TO HAVE PATIENT AMBULATE AT THIS TIME, PT WAS ABLE TO COME OFF STRETCHER. ABLE TO TAKE 3 STEPS WITH DIFFICULTY AND UNABLE TO BEAR WEIGHT ON RT LEG, STATES PAIN TO RT HIP. ASSISTED TO BEDSIDE COMMODE. INFORMED CONRAD YUAN.
[2019-03-07] MEDS ORDERED: DEXTROSE 50% SYRINGE 50 ML IV PRN (19:00)
[2019-03-07 19:46] VITALS: BP 141/61
--- NOTE | 2019-03-07 19:46 | NUR ---
RECEIVED PATIENT FROM ER AT THIS TIME. PATIENT REPORTS PAIN IS 8/10, HIGHER WHEN TRANSFERRED TO THE BED. PATIENT IS A&OX4. P[place] ISLANDER SPEAKING. DAUGHTER IS AT BEDSIDE TO TRANSLATE AND WILL STAY THE NIGHT. L FOREARM 18G IV IS ASYMPTOMATIC, INTACT, AND PATENT. EXPIRATORY WHEEZING NOTED IN BILATERAL LOWER LOBES. BOWEL SOUNDS ACTIVE. NO EDEMA NOTED. SKIN INTACT. BED LOCKED IN LOWEST POSITION, SIDE RAILS UPX2, CALL LIGHT IN REACH.
[2019-03-07 20:00] VITALS: BP 141/61
[2019-03-07] MEDS: MORPHINE SULFATE INJ 4 MG/ML INJ 1ML IV PRN (20:17)
[2019-03-07] MEDS: ONDANSETRON HCL INJ 2MG/ML 2ML 2 MG/ML VIAL IV PRN (20:18)
[2019-03-07 20:23] VITALS: BP 141/61
[2019-03-07] MEDS: INSULIN REGULAR, HUMAN 100 UNIT/1 ML 3ML VIAL SQ SCH (21:00)
[2019-03-08] VITALS (9 sets, daily range): BP systolic 97–114; BP diastolic 51–63
--- NOTE | 2019-03-08 01:00 | NUR ---
SPOKE WITH RADIOLOGY; EXPLAINED MD PARIKH ORDER FOR MRI OF R HIP AND PELVIS AND HIS REQUEST IT BE DONE FIRST THING IN THE MORNING. RADIOLOGY STATED SHE WOULD CALL TECH TO COME IN A LITTLE EARLY AND PERFORM MRI BEFORE OUTPATIENT PROCEDURES.
[2019-03-08] MEDS: MORPHINE SULFATE INJ 4 MG/ML INJ 1ML IV PRN ×3 (03:17→16:54)
[2019-03-08] MEDS: ONDANSETRON HCL INJ 2MG/ML 2ML 2 MG/ML VIAL IV PRN ×2 (03:17→11:06)
[2019-03-08] MEDS: INSULIN REGULAR, HUMAN 100 UNIT/1 ML 3ML VIAL SQ SCH (07:30)
[2019-03-08] MEDS ORDERED: DEXTROSE 50% SYRINGE 50 ML IV PRN (08:30)
[2019-03-08] MEDS: METOPROLOL SUCCINATE 25 MG TAB XL PO SCH ×2 (09:00→16:53)
--- NOTE | 2019-03-08 10:00 | NUR ---
MD CARRERO STATES ITS OK FOR PT TO HAVE MRI WITH LOOP
--- NOTE | 2019-03-08 10:20 | NUR ---
HOLDING MORNING RESUMED HOME MEDS BY MD BASS UNTIL FAMILY BRINGS OFFICIAL HOME MED LIST
[2019-03-08] MEDS: PANTOPRAZOLE SOD 40 MG TABEC PO SCH (11:06)
[2019-03-08] MEDS: SENNOSIDES 8.6 MG TAB PO SCH ×2 (11:06→16:53)
[2019-03-08] MEDS: ASPIRIN 81 MG CHEW TAB PO SCH (11:06)
--- NOTE | 2019-03-08 11:07 | NUR ---
PT OFF UNIT FOR MRI MEDICATED WITH MORPHINE FOR KWAN 07/08 UPON TRANSFER TO MRI BED
[2019-03-08] MEDS: INSULIN LISPRO 100 UNIT/1 ML 3ML VIAL SQ SCH ×3 (11:30→20:49)
[2019-03-08] MEDS ORDERED: SODIUM CHLORIDE 0.9% 250ML 250 ML ONE (11:48)
[2019-03-08] MEDS ORDERED: ONDANSETRON HCL 4 MG ORAL DISINTEGRATING TAB PO PRN (12:00)
--- NOTE | 2019-03-08 12:00 | Consultation ---
DATE OF CONSULTATION: 03/08/2019 Cardiology consultation CONSULTING PHYSICIAN: Robert Moreno MD, Interventional Cardiology. REASON FOR CONSULTATION: Evaluation for loop recorder pre MRI. HISTORY OF PRESENT ILLNESS: Pito is a pleasant 73-year-old woman, well known to me with history of diabetes mellitus type 2, hypertension, dyslipidemia, morbid obesity, and episodes of atypical chest pain and palpitations, status post [employer] Reveal LINQ loop recorder implant. She presents following mechanical fall with no loss of consciousness with resulting right hip pain. She has a prior history of right hip open reduction and internal fixation, and she is scheduled for MRI and we have been asked to evaluate her for this reason. She denies any chest pain or shortness of breath. She denies any syncope or recent palpitations. REVIEW OF SYSTEMS: A 12 system review negative except for as noted above. ALLERGIES: NO KNOWN DRUG ALLERGIES. PAST MEDICAL HISTORY: Significant for hypertension, diabetes mellitus, and dyslipidemia. SURGICAL HISTORY: Cholecystectomy and hysterectomy. FAMILY HISTORY: Hypertension in various sisters. SOCIAL HISTORY: Nonsmoker. No alcohol. No drugs. PHYSICAL EXAMINATION: VITAL SIGNS: Temperature 97 degrees, heart rate 76, respiratory rate 17, blood pressure 97/56, and O2 saturation 94% on 2 L/minute nasal cannula. GENERAL: In no acute distress, alert. NECK: No JVD. CHEST: Clear to auscultation. CARDIOVASCULAR: Regular rate and rhythm. Normal S1, S2. No S3, no S4. No murmurs, no rubs. ABDOMEN: Soft, nontender, nondistended. EXTREMITIES: No cyanosis, clubbing, or edema. MEDICATIONS: Cardiovascular medications reviewed. 1. Atorvastatin 20 mg at bedtime. 2. Aspirin 81 mg daily. 3. Amiodarone 200 mg b.i.d. 4. Metoprolol succinate 25 mg b.i.d. 5. Previously on amlodipine, currently not on MAR. LABORATORY DATA: Most recent ILR interrogation from 12/07/2018 in office, no events. Studies reviewed. EKG sinus rhythm, nonspecific repolarization abnormalities. White blood cells 8.8, hemoglobin 11.6, and platelets 284. INR 0.9. Sodium 140, potassium 4.2, chloride 106, bicarbonate 25, BUN 15, creatinine 1.09, glucose 88, AST 29, ALT 30, total bilirubin 0.8, alkaline phosphatase 66, total protein 7.2, and albumin 3.8. ASSESSMENT: 1. Mechanical fall with right hip pain, pending MRI. 2. Hypertension. 3. History of palpitations and atypical chest pain/PVCs. 4. Diabetes mellitus, hypertension, dyslipidemia, and morbid obesity. RECOMMENDATIONS: 1. I have requested device interrogation. 2. MRI conditional recommendations per company have been printed out and provided to nursing staff for radiology guidelines. 3. Continue beta-vazquez. 4. We will follow along. Please feel free to call with any questions or concerns. MD CHRIS Cuevas/SANDRITA /[id number]
[2019-03-08] MEDS ORDERED: AMLODIPINE BESYL5 MG PO (12:05)
[2019-03-08] MEDS ORDERED: ULTRAM50 MG PO (12:05)
[2019-03-08] MEDS ORDERED: JANUVIA100 MG PO (12:05)
[2019-03-08] MEDS ORDERED: CELEBREX100 MG PO (12:05)
[2019-03-08] MEDS ORDERED: SODIUM CHLORIDE 0.9% 250ML 250 ML IV ONE (12:15)
--- NOTE | 2019-03-08 12:18 | Diagnostic Imaging Report ---
TECHNIQUE: Magnetic resonance imaging of the RIGHT hip and pelvis was performed WITHOUT injected contrast. HISTORY: Pain, fall COMPARISON: None available. FINDINGS: Bone: Insufficiency fractures including the right sacrum, right superior pubic ramus (at the puboacetabular junction and adjacent to the pubic symphysis), and right inferior pubic ramus. Femoroacetabular Joint: Acetabular labrum: Degenerative fraying. Articular Cartilage: Partial-thickness cartilage loss Muscle and tendons: The visualized tendons appear intact. Soft tissues: Soft tissue hematoma and edema in the subcutaneous fat of the right buttock. Soft tissue edema adjacent to the fracture sites. IMPRESSION: Insufficiency fractures of the right sacrum, superior pubic ramus, and inferior pubic ramus. Soft tissue hematoma and edema in the subcutaneous fat of the right buttock. Signed by: Dr. Brady Villegas M.D. on 03/08/2019 12:14 PM
[2019-03-08] MEDS: AMIODARONE HCL 200 MG TAB PO SCH ×2 (12:51→16:53)
--- NOTE | 2019-03-08 12:51 | NUR ---
PT BACK FROM MRI PT IS RESTING COMFORTABLY TRACTION TO RIGHT LEG NOW ON
--- NOTE | 2019-03-08 13:49 | Diagnostic Imaging Report ---
CT of the chest, with contrast, 03/08/2019. History: Neck mass. Comparison: CT C-spine 03/07/2019. Technique: Multidetector CT scanning of the chest was performed from the level of the apices to the upper abdomen after intravenous administration of contrast. Coronal and sagittal multiplanar reformations were obtained. RADIATION DOSE: Dose modulation, iterative reconstruction, and/or weight based adjustment of the mA/kV was utilized to reduce the radiation dose to as low as reasonably achievable. Discussion: Chest: The heart and main pulmonary artery are enlarged. The thoracic aorta is within normal limits for size. The thyroid is normal in appearance. 2 oval heterogeneously enhancing nodules are present adjacent to but appearing separate from the thyroid, one inferior to the left lobe measuring 2.5 x 2.0 x 3.0 cm and one inferior and posterior to the right lobe measuring 2.5 x 1.4 x 2.7 cm. There is no evidence of axillary or mediastinal adenopathy. There is bilateral scattered subsegmental atelectasis. There is no evidence of consolidation, mass, or pleural effusion. Limited evaluation of the upper abdomen shows normal adrenal glands. A 2.8 cm partially visualized simple appearing cyst is noted in the upper pole of the right kidney. A small hiatal hernia is present. Bones and soft tissues: Degenerative changes are present throughout the cervical and thoracic spine. No acute abnormality. IMPRESSION: 1. Bilateral masses adjacent to the thyroid suggestive of parathyroid adenomas. Correlate with laboratory values. 2. Bilateral subsegmental atelectasis. 3. Cardiomegaly and pulmonary artery enlargement without evidence of acute pulmonary edema. Signed by: Branden Bowen on 03/08/2019 1:45 PM
--- NOTE | 2019-03-08 13:57 | Diagnostic Imaging Report ---
CT SOFT TISSUE NECK W HISTORY: Neck mass COMPARISON: Cervical spine and head CT 03/07/2019 TECHNIQUE: Axial CT images were obtained through the neck with intravenous, iodine based contrast. Coronal and sagittal reconstructions obtained from the axial data. One or more of the following dose reduction techniques were used: Automated exposure control, adjustment of the mA and/or kV according to patient size, and/or utilization of iterative reconstruction technique. DISCUSSION: Approximately 2 cm, nodular heterogeneous mass is inseparable from the posterior lower right thyroid lobe. Similar 2.1 cm nodular mass abuts the inferior left thyroid lobe and slightly extends into the anterior thoracic inlet. These nodules are grossly isodense to the thyroid tissue (without and with contrast). The thyroid gland is subtly heterogeneous. The thyroid gland is otherwise unremarkable. The palatine and lingual tonsils are mildly prominent. Bilateral palatine tonsilloliths are present. Otherwise, the visualized upper aerodigestive tract is unremarkable. No radiographically significant cervical adenopathy is seen. The submandibular and parotid glands are unremarkable. The major cervical vessels are unremarkable. The child care coordinator, parapharyngeal, posterior cervical, and perivertebral spaces are unremarkable. Both ocular lenses are thinned. Mild periventricular white matter hypodensities are likely chronic microvascular ischemic changes. Otherwise, the visualized intracranial compartment and orbits are grossly unremarkable. The paranasal sinuses are clear. There are mild to moderate degenerative changes throughout the spine. Please refer to concurrent chest CT for intrathoracic findings. IMPRESSION: 1. Approximately 2 cm mass posterior to the lower right thyroid lobe and similar 2.1 cm mass inferior to the left thyroid lobe may be exophytic thyroid nodules. Parathyroid adenomas are thought to be less likely given their density characteristics; this can be correlated with calcium and parathyroid hormone levels. 2. Slightly heterogeneous thyroid gland. 3. Mildly prominent palatine and lingual tonsils. Otherwise, the visualized upper aerodigestive tract is unremarkable. 4. No radiographically significant cervical adenopathy. Signed by: Dr. Ryan Seaman M.D. on 03/08/2019 1:53 PM
--- NOTE | 2019-03-08 14:05 | History and Physical ---
PRIMARY CARE PHYSICIAN: Dr. Daphne Walker. CROWN WHEEL ASSEMBLER: 1. Dr. Palomo Sykes. 2. Dr. Robert Moreno. CHIEF COMPLAINT: Status post recurrent fall. Intractable right hip pain. Dizziness. HISTORY OF PRESENT ILLNESS: The patient is a [id number] with recurrent fall. This time she fell to her right side quite significantly with unable to ambulate and any pressure on the right lower extremity. The patient came to the hospital for evaluation. She has intractable right hip and buttock pain. X-rays inconclusive. The patient will have an MRI of the right hip. The patient is otherwise stable. She does have a left chest loop recorder for arrhythmia. The patient is stable at this time. She will be evaluated by Dr. Darby prior to her MRI of the right hip. The patient also incidentally find in the emergency room a CT of the C-spine showing 2.8 x 1.9 x 1.9 cm nonspecific neck mass, right next to the thyroid gland. The patient did not know that she has a mass and no previously found. The patient is otherwise stable at this time. PAST MEDICAL HISTORY: Osteoarthritis, recurrent fall, type 2 diabetes, dyslipidemia, obesity, allergic rhinitis, osteoporosis, chronic bronchitis. PAST SURGICAL HISTORY: Total abdominal hysterectomy with bilateral salpingo-oophorectomy. Right knee meniscus repair. Right proximal humerus open reduction internal fixation on December 30, 2017. Cardiac catheterization. No coronary stent. The patient does have loop recorder to the left chest area. SOCIAL HISTORY: The patient lives with her family. She does not smoke or use alcohol. No recreational drugs. ALLERGIES: NO KNOWN ALLERGIES. HOME MEDICATION: She is on amiodarone, aspirin, Lipitor, metoprolol, omeprazole, Actonel, metformin, Janumet, gabapentin, omeprazole, and metoprolol succinate. PHYSICAL EXAMINATION: VITAL SIGNS: Temperature is 98, blood pressure 114/59, pulse rate 71, respirations 18. GENERAL: The patient is in pain in the right hip, difficulty with right lower extremity range of motion. HEENT: Normocephalic, atraumatic. Anicteric. NECK: Supple grossly. PULMONARY: Clear. CARDIOVASCULAR: Regular rate and rhythm. ABDOMEN: Soft, obese. EXTREMITIES: No cyanosis or edema. NEUROLOGIC: No gross focal deficit. LABORATORY DATA: WBC is 8.8, hemoglobin 11.6, hematocrit is 37, and platelets is 284. Chemistry, sodium 140, potassium 4.2, chloride 106, bicarb 25, BUN 15, creatinine 1.0, glucose is 88. Coagulation is normal. PT 13.5, INR 0.9, PTT 27.5. IMAGING: The brain CT, mild supratentorial white matter small-vessel ischemic changes. Focal lacunar insult in the anterior limb of the left internal capsule. Cervical spine CT show 2.8 x 1.9 x 1.9 noncalcified non-necrotic mildly hyperdense mass posterior but separate from the right lobe of the thyroid not associated with inflammatory changes in the surrounding soft tissue. Chest x-rays unremarkable. Hip x-ray is unremarkable. IMPRESSION: 1. Right hip intractable pain, status post fall. MRI still pending. 2. Recurrent fall. 3. Incidental finding of the neck mass as described. PLAN: We will obtain a CT of the neck with contrast along with CT of the chest as well. Obtain MRI of the right hip as requested by Dr. Renee. Consultation with Dr. Darby because of the loop recorder. Home medication. Insulin sliding scale coverage. Pain control. MD PHU Jett/KRISSYL /[id number]
--- NOTE | 2019-03-08 16:02 | NUR ---
md mayers ordered to dc traction traction removed pt tolerated well
[2019-03-08] MEDS ORDERED: SODIUM CHLORIDE 0.9% 50ML 50 ML ONE (17:12)
[2019-03-08] MEDS ORDERED: IOPAMIDOL 370 MG/ML 200 ML INFUS..BTL INJ ONE (17:12)
[2019-03-08] MEDS: GABAPENTIN 300 MG CAP PO SCH (20:48)
[2019-03-08] MEDS: ATORVASTATIN 20 MG TAB PO SCH (20:48)
[2019-03-08] MEDS ORDERED: GABAPENTIN 300 MG PO SCH (21:00)
[2019-03-09] VITALS (8 sets, daily range): BP systolic 92–111; BP diastolic 52–68
--- NOTE | 2019-03-09 07:05 | NUR ---
REPORT GIVEN TO ONCOMING NURSE.WALKING ROUNDS MADE.PT RESTING IN BED WITH NO S/S OF DISTRESS.
--- NOTE | 2019-03-09 07:12 | NUR ---
PT RESTING IN BED [id number]. SOUTH [place]OREAN SPEAKING ONLY PT IS IN NO S.S OF DISTRESS DENIES PAIN AT REST PT HAS A LEFT WRIST 18 G SL PATENT AND DRY PT HAS FOOT PUMPS AND TEDS PT IS WORKING WITH PT FOR HER FX , NON WEIGHT BEARING TO RIGHT LEG DIAPER ON WITH PUREWICK INPLACE DRAINING CLEAR YELLOW URINE WILL CONTINUE TO MONITOR PT CLOSELY SIDE RAILSX2, BED WHEELS LOCKED ,CALL LIGHT IS WITHIN EASY REACH, INSTRUCTED TO CALL FOR ASSISTANCE IF NEEDED
[2019-03-09] MEDS: INSULIN LISPRO 100 UNIT/1 ML 3ML VIAL SQ SCH ×4 (07:30→21:00)
[2019-03-09] MEDS: PANTOPRAZOLE SOD 40 MG TABEC PO SCH (08:36)
[2019-03-09] MEDS: ASPIRIN 81 MG CHEW TAB PO SCH (08:37)
[2019-03-09] MEDS: SENNOSIDES 8.6 MG TAB PO SCH ×2 (08:37→18:23)
[2019-03-09] MEDS: METOPROLOL SUCCINATE 25 MG TAB XL PO SCH (08:37)
[2019-03-09] MEDS: AMIODARONE HCL 200 MG TAB PO SCH ×2 (08:37→18:23)
--- NOTE | 2019-03-09 10:52 | NUR ---
INPT ORDERS IMM EXPLAINED TO PT, SIGNED BY PT AND PLACED IN CHART COPY TO PT IN CARE TRANSITIONS FOLDER
--- NOTE | 2019-03-09 10:55 | NUR ---
DISREGARD ABOVE NOTE INPT ORDER CANCELLED
[2019-03-09] MEDS: HYDROCODONE/APAP 10MG-325MG TAB PO PRN (10:56)
--- NOTE | 2019-03-09 11:14 | NUR ---
SPOKE WITH DR BAEZ INPT ORDERS REC'D PT UNABLE TO AMBULATE IMM EXPLAINED BY PT'S DTR, SIGNED BY PT AND PLACED IN CHART COPY TO PT IN PT CARE TRANSITION FOLDER
--- NOTE | 2019-03-09 13:03 | NUR ---
SPOKE WITH PT AND FAMILY ABOUT SNF, GAVE IN NETWORK CHOICES OF MEDICAL [facility]ORT [facility], [facility], [facility], [facility] AND [facility]. FAMILY REQUESTING TO GO LOOK AT BUILDINGS AND WILL GIVE CHOICE TOMORROW.
--- NOTE | 2019-03-09 15:22 | NUR ---
SPOKE WITH DAUGHTER SIENA, SHE CALLED AND LET KNOW CHOICE WAS FOR [facility], WILL FAX CLINICALS TO [phone]
--- NOTE | 2019-03-09 15:30 | NUR ---
NOTIFIED MD CARRERO OF LOW BP RANGING IN THE 90-100 SYSTOLIC MD CARRERO ORDERED TO CUT HALF DOSE OF METOPROLOL FOR NOW
--- NOTE | 2019-03-09 16:18 | Diagnostic Imaging Report ---
Thyroid ultrasound History: Goiter. Comparison: CT neck 03/08/2019. Findings: The thyroid echotexture is heterogeneous. Vascularity is normal. The right lobe measures 3.6 x 1.1 x 1.7 cm. The left lobe measures 5.9 x 1.8 x 1.7 cm. The isthmus measures 0.4 cm. Nodules: Right Lobe: There is a 0.4 cm simple appearing cyst in the inferior pole. There is a 0.5 cm coarse calcification in the inferior pole. No mass is demonstrated along the inferior aspect of the right thyroid lobe, described on prior CT. Left Lobe: In the inferior pole, there is a heterogeneously hypoechoic solid nodule, measuring up to 2.3 cm. The nodule is taller than wide, has irregular margins, and has punctate echogenic foci. Total 12 points, TR 5. Isthmus: No cystic mass or discrete solid nodule identified. Lymph Nodes: No cervical lymph nodes are identified. Parathyroids: Not visualized. IMPRESSION: Highly suspicious heterogeneous nodule in the inferior pole of the left thyroid gland. Ultrasound guided FNA is recommended for further evaluation. No sonographic correlate to the mass demonstrated along the inferior aspect of the right thyroid lobe described on recent prior CT. Per prior CT, suggest correlation with calcium and parathyroid hormone levels. Follow-up ultrasound may be considered. The right thyroid lobe can also be re-assessed during the time of subsequent ultrasound guided FNA. ACR glossary of thyroid rads TI-RADS 1: No focal lesion. TI-RADS 2: Not suspicious. TI-RADS 3: Mildly suspicious (recommend FNA is greater than or equal to 2.5 cm; follow-up at 1, 3, and 5 years if greater than or equal to 1.5 cm) TI-RADS 4: Moderately Suspicious (recommend FNA is greater than or equal to 1.5 cm; follow-up at 1, 2, 3, and 5 years) TI-RADS 5: Highly suspicious (recommend FNA is greater than or equal to 10 mm) TI-RADS 6: Biopsy-proven malignancy Signed by: Dr. Praful Low MD on 03/09/2019 4:14 PM
[2019-03-09 17:01] LABS: FREE T4 (FREE THYROXINE) 1.23 ng/dL (0.9-1.8); THYROID STIMULATING HORMONE 0.131 uIU/mL (0.350-4.940)
--- NOTE | 2019-03-09 19:40 | NUR ---
Patient in bed watching tv with family at bedside. Denies pain at this time. No resp distress. Call light within reach and instructed to call for assistance. Patient verbalized understanding.
--- NOTE | 2019-03-09 19:41 | Progress Note ---
DATE: Cardiology Progress Note SUBJECTIVE: No new complaints today. OBJECTIVE: VITAL SIGNS: Reviewed. Temperature 97.3, heart rate 72, blood pressure 111/68, respiratory rate 16, and O2 saturation 95%. BMI 33.2. GENERAL: In no acute distress. Alert. NECK: No JVD. CHEST: Clear to auscultation. CARDIOVASCULAR: Regular rate and rhythm. Normal S1 and S2. No S3 or S4. ABDOMEN: Soft. Nontender. EXTREMITIES: Trace edema. CARDIOVASCULAR MEDICATIONS: Reviewed. 1. Atorvastatin 20 mg at bedtime. 2. Metoprolol succinate 25 mg b.i.d. 3. Amiodarone 200 mg b.i.d. 4. Aspirin 81 mg daily. LABORATORY DATA: Studies reviewed. Sodium 140, potassium 4.2, chloride 106, bicarbonate 25, BUN 15, creatinine 1.09, glucose 88. White blood cells 8.8, hemoglobin 11.6, and platelets 284. INR 0.9. PT 13.5, PTT 27.5, AST 29, ALT 30, total bilirubin 0.8, alkaline phosphatase 66. ASSESSMENT: A 73-year-old woman presents with: 1. Traumatic brain injury. 2. Hypertension. 3. Dyslipidemia. 4. Palpitations. 5. Diabetes mellitus. 6. Anemia, mild. RECOMMENDATIONS: 1. Continue current cardiovascular medications. 2. No events on loop recorder interrogation. 3. Rehab per Podiatry. MD CHRIS Cuevas/SANDRITA /[id number]
[2019-03-09] MEDS: ATORVASTATIN 20 MG TAB PO SCH (20:35)
[2019-03-09] MEDS: GABAPENTIN 300 MG CAP PO SCH (20:35)
--- NOTE | 2019-03-09 21:52 | Consultation ---
DATE OF CONSULTATION: Endocrine Consultation Thank you very much for referring this patient. HISTORY OF PRESENT ILLNESS: This is a 73-year-old, sweet lady, who was referred to me for evaluation of neck masses. She came to the hospital with history of intractable right hip pain. She had a CT scan of the spine done, which showed multiple thyroid nodules both on the right and the left side probably related to thyroid, rule out parathyroid adenomas. The patient does not have history of hypercalcemia in the past. No history of any thyroid masses in the past. She has diabetes mellitus for which she is on Janumet. She has also has osteoporosis for which she is on Actonel. She has hypertension for which she is on metoprolol. PHYSICAL EXAMINATION: GENERAL: Today, the patient is alert, awake, little bit apprehensive. NECK: Reveals her thyroid is palpable. No gross nodules are palpable. CHEST: Bilateral vesicular breathing. No rales. CARDIAC: First and second heart sounds. There are no third or fourth heart sound with the systolic grade of 2/6. EXTREMITIES: The patient has marked tenderness in the right hip area and the leg raising test is positive. IMAGING DATA: The CT scan of the neck was reviewed, which shows 2 cm and 2.1 cm nodules adjacent to the right thyroid and the left thyroid. CLINICAL IMPRESSION: Neck masses probably related to multinodular goiter. Rule out parathyroid adenomas. Diabetes mellitus type 2 with complications, hypertension, osteoporosis, and right hip pain. PLAN: The plan at this time is to do an ultrasound of the thyroid. We will also do a free T4, TSH, and a PTH level. Thanks for referring this patient. I will be following this patient with you. MD IRMA Morales/SANDRITA /[id number]
[2019-03-10] VITALS (9 sets, daily range): BP systolic 90–106; BP diastolic 51–67
[2019-03-10] MEDS: INSULIN LISPRO 100 UNIT/1 ML 3ML VIAL SQ SCH ×4 (07:30→21:00)
[2019-03-10] MEDS: PANTOPRAZOLE SOD 40 MG TABEC PO SCH (09:14)
[2019-03-10] MEDS: ASPIRIN 81 MG CHEW TAB PO SCH (09:14)
[2019-03-10] MEDS: AMIODARONE HCL 200 MG TAB PO SCH ×2 (09:15→17:18)
[2019-03-10] MEDS: SENNOSIDES 8.6 MG TAB PO SCH ×2 (09:15→17:18)
[2019-03-10] MEDS: METOPROLOL SUCCINATE 25 MG TAB XL PO SCH ×2 (09:58→17:18)
[2019-03-10] MEDS: HYDROCODONE/APAP 10MG-325MG TAB PO PRN (14:17)
--- NOTE | 2019-03-10 14:41 | NUR ---
WAS CALLED BY [facility] THEY ARE NOT IN NETWORK. CALLED [facility] AND THEY ARE NOT IN NETWORK, CALLED JUAN CARLOS HER WITH [facility] [phone] TO FIND OUT FACILITIES IN NETWORK. LET FAMILY KNOW THAT [facility] WAS NOT IN NETWORKA ND THAT I HAVE CONTACTED INSURANCE TO GET UPDATED LIST TO GIVE FURTHER INFORMATION.
--- NOTE | 2019-03-10 18:36 | Progress Note ---
DATE: 03/10/2019 Medicine Progress Note I am covering for Dr. Rudolph. SUBJECTIVE: The patient is admitted due to chronic hip pain. She [facility]. I discussed overall plan of care with nurse present in the room. At this time, family did not have any questions. PHYSICAL EXAMINATION: VITAL SIGNS: Temperature is 97.2, pulse 80, respiratory rate is 18, blood pressure 106/59, pulse ox is 96% on 2 L nasal cannula. GENERAL: Not in acute distress. Alert and oriented x3. Cooperative on examination. HEENT: Head is normocephalic and atraumatic. Eyes; pupils are equal, round, and reactive to light bilaterally. Extraocular movements are intact bilaterally. Throat, no evidence of erythema or exudates in the posterior pharynx. Has poor dentition. NECK: Supple. Good range of motion. PULMONARY: Clear to auscultation bilaterally. No wheezing, no rales, no rhonchi, no crackles appreciated. CARDIOVASCULAR: Positive S1, S2. No murmurs, rubs, or gallops appreciated. ABDOMEN: Soft, nondistended, and nontender to palpation. Bowel sounds present. MUSCULOSKELETAL: Strength is 5/5 throughout. No evidence of any muscle deficits on examination. No weakness appreciated. NEUROLOGICAL: Cranial nerves 2 through 12 grossly intact. No evidence of any neurological deficits on exam. SKIN: Intact. Warm to touch. Good cap refill. PSYCHIATRIC: Normal affect and mood. EXTREMITIES: No edema. Good range of motion throughout. LAB FINDINGS: Show white count is 8.8, hemoglobin 11.6, hematocrit is 37, platelets of 284. Chemistries were stable. IMPRESSION: 1. Mechanical fall with right hip pain, chronic. 2. Hypertension. 3. Atypical chest pain. 4. Diabetes. 5. Morbid obesity. 6. Concern for underlying osteoporosis. 7. Neck masses, multinodular goiter. PLAN: At this time, continue with pain control. We are waiting on the [facility] facility placement. Ortho, Cardiology and Endocrinology are involved, we will follow their recommendations. Get a.m. labs as they have not been sought for several days now. Resume same plan of care. Discussed overall plan of care with nurse and daughter and the patient at bedside. They verbalized overall plan of care and verbalized understanding. Once again, Dr. Rudolph will be available tomorrow, I am currently covering for him. MD ABNER Mcmullen/SANDRITA /[id number]
--- NOTE | 2019-03-10 19:00 | NUR ---
RECEIVED PATIENT IN BEDSIDE REPORT. PATIENT IS A&OX4, WITH FAMILY MEMBERS AT BEDSIDE. NO PAIN REPORTED AT THIS TIME. NO S&S OF DISTRESS NOTED. L WRIST 18G IV SL AND ASYMPTOMATIC. BED LOCKED IN LOWEST POSITION, SIDE RAILS UP X2, CALL LIGHT IN REACH.
--- NOTE | 2019-03-10 20:45 | NUR ---
PATIENT TRANSFERRED TO [facility] 115. ALL BELONGINGS TRANSFERRED. PATIENT TOLERATED WELL. NO S&S OF DISTRESS NOTED. BED LOCKED IN LOWEST POSITION, SIDE RAILS UPX2, CALL LIGHT IN REACH.
[2019-03-10] MEDS: ATORVASTATIN 20 MG TAB PO SCH (21:14)
[2019-03-10] MEDS: GABAPENTIN 300 MG CAP PO SCH (21:14)
--- NOTE | 2019-03-10 22:02 | Progress Note ---
DATE: 03/10/2019 Cardiology Progress Note SUBJECTIVE: Denies any chest pain or shortness of breath. Denies any recent palpitations. OBJECTIVE: VITAL SIGNS: Temperature 97.1, heart rate 69, blood pressure 94/61, respiratory rate 17, O2 saturation 95%, BMI 33.2. GENERAL: In no acute distress, alert. NECK: No JVD. CHEST: Clear to auscultation. CARDIOVASCULAR: Regular rate and rhythm. Normal S1, S2. No S3 or S4. ABDOMEN: Soft. EXTREMITIES: Trace edema. CARDIOVASCULAR MEDICATIONS: Reviewed. Atorvastatin 20 mg at bedtime, metoprolol succinate 12.5 mg b.i.d., amiodarone 200 mg b.i.d., and aspirin 81 mg daily. STUDIES: Reviewed. Sodium 140, potassium was 1.09, glucose 88, platelets 284, hemoglobin 11.6, white blood cells 8.8. AST 29, ALT 30, alkaline phosphatase 56. ASSESSMENT: A 73-year-old woman presenting with mechanical knee trauma, undergoing management by orthopedic surgery. 1. Hypertension, diabetes, and PVCs/palpitations. 2. History of atypical chest pain. RECOMMENDATIONS: 1. Continue current cardiovascular medications, status post recent interrogation of loop recorder while in-house. No recent ectopy identified. 2. Rehab. MD CHRIS Cuevas/SANDRITA /[id number]
[2019-03-11] VITALS (8 sets, daily range): BP systolic 97–116; BP diastolic 52–64
[2019-03-11 05:57] LABS: BASOPHILS # (AUTO) 0.1 (0.0-0.1); BASOPHILS % 0.7 % (0.0-1.0); EOSINOPHILS # (AUTO) 0.3 (0.0-0.4); EOSINOPHILS % 4.2 % (0.0-6.0); HEMATOCRIT 34.2 % (34.2-44.1); HEMOGLOBIN 10.4 g/dL (12.0-16.0); LYMPHOCYTES # (AUTO) 1.3 (1.0-3.2); LYMPHOCYTES % 17.6 % (18.0-39.1); MEAN CORPUSCULAR HEMOGLOBIN 27.2 pg (28-32); MEAN CORPUSCULAR HGB CONC 30.4 g/dL (31-35); MEAN CORPUSCULAR VOLUME 89.5 fL (81-99); MONOCYTES # (AUTO) 0.7 (0.2-0.8); NEUTROPHILS # (AUTO) 4.9 (2.1-6.9); NEUTROPHILS % 67.1 % (38.7-80.0); PLATELET COUNT 221 x10e3/uL (140-360); RED BLOOD COUNT 3.82 x10e6/uL (3.6-5.1); RED CELL DISTRIBUTION WIDTH 13.8 % (11.7-14.4)
[2019-03-11 06:06] LABS: BLOOD UREA NITROGEN 22 mg/dL (7-26); BUN/CREATININE RATIO 25 (6-25); CALCIUM 9.1 mg/dL (8.4-10.2); CARBON DIOXIDE 31 mmol/L (22-29); CHLORIDE 101 mmol/L (98-107); CREATININE, SERUM 0.89 mg/dL (0.57-1.11); EST GLOMERULAR FILTRATION RATE > 60 ML/MIN (60-); GLUCOSE 117 mg/dL (74-118); SODIUM 137 mmol/L (136-145)
[2019-03-11] MEDS: INSULIN LISPRO 100 UNIT/1 ML 3ML VIAL SQ SCH ×4 (07:30→21:12)
[2019-03-11] MEDS ORDERED: TRAMADOL HCL 50 MG TAB PO PRN (09:00)
[2019-03-11] MEDS: HYDROCODONE/APAP 10MG-325MG TAB PO PRN (09:16)
[2019-03-11] MEDS: PANTOPRAZOLE SOD 40 MG TABEC PO SCH (09:16)
[2019-03-11] MEDS: SENNOSIDES 8.6 MG TAB PO SCH ×2 (09:16→18:28)
[2019-03-11] MEDS: METOPROLOL SUCCINATE 25 MG TAB XL PO SCH ×2 (09:16→18:28)
[2019-03-11] MEDS: AMIODARONE HCL 200 MG TAB PO SCH ×2 (09:16→18:28)
[2019-03-11] MEDS: ASPIRIN 81 MG CHEW TAB PO SCH (09:16)
[2019-03-11] MEDS: SITAGLIPTIN 100 MG TAB PO SCH (09:16)
--- NOTE | 2019-03-11 14:26 | NUR ---
SPOKE WITH JUAN CARLOS AT [employer] [facility] SHE GAVE FACILITIES IN NETWORK FOR [facility], [facility], [facility], [facility], AND [facility]. WENT AND SPOKE WITH THE PATIENT WHOM DIFFERED ME TO HER DAUGHTER CHRISTIAN, CALLED HER SHE STATES TO START PROCESS FOR [facility], BUT WILL LOOK AT THE BUILDING AFTER SHE GETS OFF WORK. FAXED CLINICALS AND LET KNOW FAMILY WILL COME BY [place].
[2019-03-11] MEDS ORDERED: ENOXAPARIN SOD INJ 40 MG/0.4 ML SYR SC SCH (17:00)
--- NOTE | 2019-03-11 19:00 | NUR ---
RECEIVED PATIENT IN BEDSIDE REPORT. PATIENT REPORTS NO PAIN LONG SHE DOESN'T MOVE. FAMILY MEMBERS AT BEDSIDE TO TRANSLATE. PURE WICK PLACED BY DAY SHIFT, RUNNING TO SUCTION. L WRIST 18G IV ASYMPTOMATIC, INTACT, AND PATENT. NO S&S OF DISTRESS NOTED. BED LOCKED IN LOWEST POSITION, SIDE RAILS UPX2, CALL LIGHT IN REACH.
--- NOTE | 2019-03-11 20:53 | Progress Note ---
DATE: 03/11/2019 Cardiology Progress Note SUBJECTIVE: No complaints today, but residual pelvic/hip pain. Denies chest pain or shortness of breath. OBJECTIVE: VITAL SIGNS: Temperature 97.2, heart rate 72, blood pressure 116/60, respiratory rate 20, and O2 saturation 96%. BMI 33.2. GENERAL: In no acute distress, alert. NECK: No JVD. CHEST: Clear to auscultation. CARDIOVASCULAR: Regular rate and rhythm. Normal S1 and S2. No S3 or S4. ABDOMEN: Soft and nontender. EXTREMITIES: No edema. CARDIOVASCULAR MEDICATIONS: Reviewed. Atorvastatin 20 mg at bedtime, amiodarone 200 mg b.i.d., Lovenox 40 mg subcu daily, aspirin 81 mg daily, and metoprolol succinate 12.5 mg b.i.d. LABORATORY STUDIES: Reviewed. Sodium 137, potassium 4, chloride 101, bicarbonate 31, BUN 22, creatinine 0.89, and glucose 117. White blood cell 7.2, hemoglobin 10.4, and platelets 221. INR 0.9. AST 29 and ALT 30. ASSESSMENT: 1. A 73-year-old woman presenting with mechanical fall and resultant pelvic fractures, undergoing conservative therapy. 2. Status post ILR, recent interrogation with no significant arrhythmias or findings. 3. Hypertension. 4. Diabetes. 5. Morbid obesity. 6. Atypical chest pain. RECOMMENDATIONS: 1. Continue current cardiovascular medications. 2. Consider decrease amiodarone to 200 mg once daily prior to discharge. 3. Evaluation for PT/OT. MD CHRIS Cuevas/SANDRITA /[id number]
[2019-03-11] MEDS: ATORVASTATIN 20 MG TAB PO SCH (21:13)
[2019-03-11] MEDS: GABAPENTIN 300 MG CAP PO SCH (21:13)
--- NOTE | 2019-03-11 22:00 | NUR ---
PATIENT NOT ON O2 AT HOME, REMOVED O2 TO ASSESS HOW PATIENT WILL DO WITHOUT O2. RECHECKED, O2 SATS IN THE HIGH 70S, LOW 80S. RESUMED O2 VIA NC AT 2L; O2 SATS BACK UP TO 94%.
[2019-03-12] VITALS: BP 110/67
[2019-03-12 04:00] VITALS: BP 95/63
[2019-03-12] MEDS: INSULIN LISPRO 100 UNIT/1 ML 3ML VIAL SQ SCH (07:30)
--- NOTE | 2019-03-12 07:33 | NUR ---
RECEIVED PATIENT AWAKE RESTING IN BED NO SIGNS OF DISTRESS AT THIS TIME. BED LOW, WHEELS LOCKED, SIDE RAILS X2. CALL LIGHT IN REACH WILL CONTINUE TO MONITOR PATIENT.
[2019-03-12 07:54] VITALS: BP 106/66
[2019-03-12 08:54] VITALS: BP 106/66
[2019-03-12] MEDS: PANTOPRAZOLE SOD 40 MG TABEC PO SCH (09:11)
[2019-03-12] MEDS: ASPIRIN 81 MG CHEW TAB PO SCH (09:12)
[2019-03-12] MEDS: SITAGLIPTIN 100 MG TAB PO SCH (09:12)
[2019-03-12] MEDS: AMIODARONE HCL 200 MG TAB PO SCH (09:12)
[2019-03-12] MEDS: METOPROLOL SUCCINATE 25 MG TAB XL PO SCH (09:12)
[2019-03-12] MEDS: SENNOSIDES 8.6 MG TAB PO SCH (09:12)
--- NOTE | 2019-03-12 09:13 | NUR ---
IMM EXPLAINED TO PT USING CHIEF SAFETY OFFICER, SIGNED BY PT AND PLACED IN CHART COPY TO PT IN CARE TRANSITIONS FOLDER
--- NOTE | 2019-03-12 09:55 | NUR ---
PATIENT A/O X3, EVEN RESPIRATIONS ON 2LNC. BOWEL SOUNDS ACTIVE, SKIN INTACT, NO EDEMA. ALEKSEY HOSE AND FOOT PUMPS IN PLACE. PUREWICK DRAINING CLEAR YELLOW URINE. PATIENT IS NON-WEIGHT BEARING TO RIGHT LEG. NO PAIN AT THIS TIME. LEFT WRIST IV SL INTACT AND PATENT. CALL LIGHT IN REACH, DAUGHTER AT BEDSIDE. WILL CONTINUE TO MONITOR PATIENT.
--- NOTE | 2019-03-12 10:02 | NUR ---
REPORT CALLED TO TAYLOR AT [facility].
--- NOTE | 2019-03-12 10:18 | NUR ---
REMOVED PATIENTS IV. CATHETER TIP INTACT AND PRESSURE DRESSING APPLIED.
--- NOTE | 2019-03-12 10:58 | NUR ---
PATIENT DISCHARGED FROM FACILITY. PATIENT GATHERED ALL PERSONAL BELONGINGS. TRANSFERRED TO [facility]IA EMS. NO SIGNS OF DISTRESS WHEN LEAVING FACILITY.
--- NOTE | 2019-03-15 03:11 | Discharge Summary ---
CONSULTANTS: 1. Robert Moreno MD. 2. Beto Lucero MD. 3. Palomo Sykes MD. FINAL DIAGNOSES: 1. Right pelvic bone fractures. 2. Status post fall, ambulatory dysfunction, right hip pain. 3. Incidental finding on CT-spine showed parathyroid lesions. 4. Chronic anemia. SUMMARY: The patient is a pleasant 73 years old female with status post fall and suffered right pelvic bone fractures. The patient had multiple workup done incidentally finding of bilateral neck mass consistent with parathyroid adenomas. Dr. Beto Lucero consulted. The patient will need fine-needle biopsy as an outpatient. With respect to the patient's right pelvic bone fracture, she is not ambulatory for approximately 9 weeks per recommendation by Dr. Palomo Sykes. The patient has been in the hospital for almost a week. The patient will have DVT prophylaxis with Lovenox. She will continue with physical therapy with nonweightbearing to the right lower extremity pelvic due to fractures and pain. The patient will go to skilled facility for now because of difficulty getting assist at home. The patient is nonambulatory without assistance. The patient is stable, discharged to the [facility] today. The patient will continue with her care, physical therapy, pain control, stool management for constipation prevention due to pain medication. Instruction was given to follow up with Dr. Renee in approximately 1 to 2 weeks and along with that Dr. Beto Lucero in approximately 1 to 2 weeks as well. The patient is stable, discharged today to the skilled facility [facility]. MD PHU Jett/SANDRITA /[id number]
== END 2019-03-12 10:57 | DRG 544 ==
LOC: ER 13:22 → ERHOLD 19:28 → MED/SURG2 19:46 → MED/SURG 19:47 → OBSVTOIN 03-08 08:28 → INTOOBSV 03-08 08:28 → OBSVTOIN 03-09 11:13 → MED/SURG 03-10 20:52
PROVIDERS: ADMIT Internal Medicine; ATTEND Internal Medicine
DX: M80.851A Other osteoporosis with current pathological fracture, right femur, initial encounter for fracture (principal); W19.XXXA Unspecified fall, initial encounter; I10 Essential (primary) hypertension; E11.9 Type 2 diabetes mellitus without complications; E66.01 Morbid (severe) obesity due to excess calories; Z68.33 Body mass index [BMI] 33.0-33.9, adult; I49.3 Ventricular premature depolarization; E04.9 Nontoxic goiter, unspecified; D64.9 Anemia, unspecified; W01.0XXA Fall on same level from slipping, tripping and stumbling without subsequent striking against object, initial encounter
CPT/HCPCS: 36415; 70450; 70491; 71045; 71260; 72125; 72195; 76536; 80048; 80053; 82330; 82948; 83036; 83519; 83970; 84439; 84443; 85025; 85610; 85730; 93005; 96372; 97139; 99285; G0378; J1650; J2270; J2405; J7050; Q9967

== ENCOUNTER 2019-08-24 14:42 | Outpatient (RCR) | payer MEDICARE, OTHER ==
[~2019-08-24 14:42] MED LIST changes: +AMLODIPINE BESYL5 MG PO; +CELEBREX100 MG PO; +JANUVIA100 MG PO; +ULTRAM50 MG PO
== END 2019-08-28 ==
LOC: PT 14:42
PROVIDERS: ATTEND Specialist
DX: M17.0 Bilateral primary osteoarthritis of knee (principal); M54.5 Low back pain; Z87.311 Personal history of (healed) other pathological fracture

== ENCOUNTER 2020-06-27 09:47 | Outpatient (RCR) | payer MEDICARE, OTHER | END 2020-06-28 | LOC: PT 09:47 | PROVIDERS: ATTEND Specialist | DX: S33.5XXA Sprain of ligaments of lumbar spine, initial encounter (principal) ==

== ENCOUNTER 2020-07-20 10:44 | Outpatient (RCR) | payer MEDICARE, OTHER | END 2020-07-29 | LOC: PT 10:44 | PROVIDERS: ATTEND Specialist | DX: S33.5XXA Sprain of ligaments of lumbar spine, initial encounter (principal); M72.2 Plantar fascial fibromatosis ==

== ENCOUNTER 2020-07-28 12:47 | Outpatient (RCR) | payer MEDICARE, OTHER | END 2020-07-29 | LOC: PT 12:47 | PROVIDERS: ATTEND Specialist | DX: M72.2 Plantar fascial fibromatosis (principal); M25.672 Stiffness of left ankle, not elsewhere classified; M62.81 Muscle weakness (generalized); R26.89 Other abnormalities of gait and mobility ==

== ENCOUNTER 2020-08-22 16:57 | Outpatient (RCR) | payer MEDICARE, OTHER | END 2020-08-28 | LOC: PT 16:57 | PROVIDERS: ATTEND Specialist | DX: M72.2 Plantar fascial fibromatosis (principal); M25.672 Stiffness of left ankle, not elsewhere classified; R26.89 Other abnormalities of gait and mobility; M62.81 Muscle weakness (generalized) | CPT/HCPCS: 97139 ==

== ENCOUNTER 2020-09-12 14:00 | Outpatient (RCR) | payer MEDICARE, OTHER | END 2020-09-28 | LOC: PT 14:00 | PROVIDERS: ATTEND Specialist | DX: M72.2 Plantar fascial fibromatosis (principal); M62.81 Muscle weakness (generalized); R26.89 Other abnormalities of gait and mobility; M25.672 Stiffness of left ankle, not elsewhere classified ==

== ENCOUNTER 2021-10-24 14:00 | Outpatient (RCR) | payer MEDICARE, OTHER | END 2021-10-29 | LOC: PT 14:00 | PROVIDERS: ATTEND Specialist | DX: M17.12 Unilateral primary osteoarthritis, left knee (principal) ==

== ENCOUNTER 2021-11-06 13:38 | Outpatient (RCR) | payer MEDICARE, OTHER | END 2021-11-26 | LOC: PT 13:38 | PROVIDERS: ATTEND Specialist | DX: M17.12 Unilateral primary osteoarthritis, left knee (principal) | CPT/HCPCS: 97139 ==

== ENCOUNTER → 2022-04-26 | Outpatient (CLI) | payer MEDICARE, OTHER | LOC: RAD 13:40 | PROVIDERS: ATTEND Internal Medicine Pulmonary Disease | DX: R06.02 Shortness of breath (principal) | CPT/HCPCS: 71046 ==

== ENCOUNTER → 2022-11-18 | Outpatient (CLI) | payer MEDICARE, OTHER | LOC: RAD 09:30 | PROVIDERS: ATTEND Internal Medicine Pulmonary Disease | DX: R06.02 Shortness of breath (principal) | CPT/HCPCS: 71046 ==

== ENCOUNTER 2022-11-20 08:59 | Outpatient (RCR) | payer MEDICARE, OTHER | END 2022-11-26 | LOC: OT 08:59 | PROVIDERS: ATTEND Specialist | DX: M19.042 Primary osteoarthritis, left hand (principal); S62.522D Displaced fracture of distal phalanx of left thumb, subsequent encounter for fracture with routine healing; M25.542 Pain in joints of left hand; M25.642 Stiffness of left hand, not elsewhere classified; R53.1 Weakness ==

== ENCOUNTER 2024-01-26 12:27 | Outpatient (RCR) | payer MEDICARE, OTHER | END 2024-01-27 | LOC: PT 12:27 | PROVIDERS: ATTEND Orthopaedic Surgery Sports Medicine | DX: M17.11 Unilateral primary osteoarthritis, right knee (principal) ==

== ENCOUNTER 2024-03-04 09:00 | Outpatient (RCR) | payer MEDICARE, OTHER | END 2024-03-28 | LOC: PT 09:00 | PROVIDERS: ATTEND Orthopaedic Surgery Sports Medicine | DX: M17.11 Unilateral primary osteoarthritis, right knee (principal) ==

== ENCOUNTER 2024-07-28 09:00 | Outpatient (RCR) | payer MEDICARE, OTHER | END 2024-07-29 | LOC: PT 09:00 | PROVIDERS: ATTEND Nurse Practitioner | DX: M19.012 Primary osteoarthritis, left shoulder (principal); M25.512 Pain in left shoulder; M62.81 Muscle weakness (generalized) ==

== ENCOUNTER 2024-08-24 14:56 | Outpatient (RCR) | payer MEDICARE, OTHER | END 2024-08-28 | LOC: PT 14:56 | PROVIDERS: ATTEND Nurse Practitioner | DX: M19.012 Primary osteoarthritis, left shoulder (principal) ==

== ENCOUNTER 2024-09-09 14:00 | Outpatient (RCR) | payer MEDICARE, OTHER | END 2024-09-28 | LOC: PT 14:00 | PROVIDERS: ATTEND Nurse Practitioner | DX: M19.012 Primary osteoarthritis, left shoulder (principal) ==

== ENCOUNTER 2024-12-22 12:57 | Emergency (ER) | payer MEDICARE, OTHER ==
[~2024-12-22] VITALS: Ht 154.9 cm; Wt 79.8 kg
[2024-12-22 13:08] VITALS: PULSE 62; RESP 18; TEMP 97.8; O2SAT 96
[2024-12-22] MEDS: SODIUM CHLORIDE 0.9% 1000ML 1,000 ML IV ONE (14:14)
[2024-12-22 14:27] LABS: BASOPHILS % 0.2 % (0.0-1.0); EOSINOPHILS # (AUTO) 0.3 (0.0-0.4); EOSINOPHILS % 2.2 % (0.0-6.0); HEMOGLOBIN 12.2 g/dL (12.0-16.0); LYMPHOCYTES # (AUTO) 1.8 (1.0-3.2); LYMPHOCYTES % 14.8 % (18.0-39.1); MEAN CORPUSCULAR HEMOGLOBIN 26.8 pg (28-32); MEAN CORPUSCULAR HGB CONC 31.3 g/dL (31-35); MEAN CORPUSCULAR VOLUME 85.7 fL (81-99); MONOCYTES # (AUTO) 0.7 (0.2-0.8); MONOCYTES % 5.9 % (4.4-11.3); NEUTROPHILS # (AUTO) 9.2 (2.1-6.9); NEUTROPHILS % 76.5 % (38.7-80.0); PLATELET COUNT 274 x10e3/uL (140-360); RED BLOOD COUNT 4.55 x10e6/uL (3.6-5.1); WHITE BLOOD COUNT 12.01 x10e3/uL (4.8-10.8)
[2024-12-22 14:37] LABS: CLARITY,URINE CLEAR (CLEAR); COLOR,URINE YELLOW (YELLOW); LEUKOCYTE ESTERASE ,URINE NEGATIVE (NEGATIVE); NITRITE,URINE NEGATIVE (NEGATIVE); PH,URINE 6 (5 - 7)
[2024-12-22 14:38] LABS: BILIRUBIN,URINE NEGATIVE (NEGATIVE); GLUCOSE, URINE NEGATIVE (NEGATIVE); KETONES,URINE NEGATIVE (NEGATIVE); PROTEIN,URINE DIPSTICK NEGATIVE (NEGATIVE); URINE UROBILINOGEN 0.2 mg/dL (0.2 - 1)
[2024-12-22 14:54] LABS: BACTERIA,URINE FEW /HPF; EPITHELIAL CELLS,URINE FEW /LPF; RBC,URINE 0-5 /HPF (0-5); WBC,URINE (MAN) 0-5 /HPF (0-5)
[2024-12-22 14:58] LABS: ALBUMIN 3.9 g/dL (3.5-5.0); ALBUMIN/GLOBULIN RATIO 1.1 (0.8-2.0); ANION GAP 16.3 mmol/L (8-16); BILIRUBIN,TOTAL 0.6 mg/dL (0.2-1.2); CALCIUM 9.6 mg/dL (8.4-10.2); CREATININE, SERUM 1.14 mg/dL (0.57-1.11); POTASSIUM 4.3 mmol/L (3.5-5.1); TOTAL PROTEIN 7.6 g/dL (6.5-8.1)
[2024-12-22] MEDS ORDERED: COLACE100 M1 PO (16:26)
[2024-12-22] MEDS ORDERED: IOPAMIDOL 370 MG/ML 100 ML INFUS..BTL INJ ONE (19:01)
== END 2024-12-22 16:37 | disposition home or self-care (01) ==
LOC: ER 13:40
DX: R10.30 Lower abdominal pain, unspecified (principal); K86.9 Disease of pancreas, unspecified; R19.5 Other fecal abnormalities; I10 Essential (primary) hypertension; E11.9 Type 2 diabetes mellitus without complications; M81.0 Age-related osteoporosis without current pathological fracture
CPT/HCPCS: 36415; 74177; 80053; 81001; 83690; 85025; 99284; J7030; Q9967